=== PATIENT | female | born 1955 | race Hispanic/Latino ===

== ENCOUNTER 2020-05-02 09:19 | Inpatient (IN) | payer SELFPAY ==
[~2020-05-02] VITALS: Ht 154.9 cm; Wt 66.8 kg
[2020-05-02 09:43] LABS: APPEARANCE,URINE TURBID (CLEAR); BILIRUBIN,URINE NEGATIVE (NEGATIVE); COLOR,URINE YELLOW (YELLOW); GLUCOSE, URINE (UA) NEGATIVE (NEGATIVE); KETONES,URINE 5 mg/dL (NEGATIVE); LEUKOCYTE ESTERASE ,URINE NEGATIVE (NEGATIVE); NITRATE,URINE NEGATIVE (NEGATIVE); OCCULT BLOOD,URINE LARGE (NEGATIVE); PH,URINE 8.5 (5.0-8.0); PROTEIN,URINE TRACE mg/dL (NEGATIVE); UROBILINOGEN,URINE 0.2 mg/dL (0.2-1.0)
[2020-05-02 09:45] LABS: BASOPHILS % (AUTO) 0.5 % (0.0-5.0); EOSINOPHILS % (AUTO) 3.7 % (0.0-8.0); HEMATOCRIT 36.8 % (36-48); MEAN CORPUSCULAR HEMOGLOBIN 29.1 pg (27.0-33.0); MEAN CORPUSCULAR HGB CONC 34.5 g/dL (32.0-36.0); MEAN CORPUSCULAR VOLUME 84.2 fL (79-99); NEUTROPHILS % (AUTO) 44.6 % (40.0-77.0); PLATELET COUNT (AUTO) 266 K/uL (130-400); RED BLOOD CELL COUNT(AUTO) 4.37 MIL/uL (4.00-5.50); RED CELL DISTRIBUTION WIDTH 13.2 % (11.0-15.5); WHITE BLOOD COUNT (AUTO) 6.1 K/uL (4.8-10.8)
[2020-05-02] MEDS ORDERED: ONDANSETRON HCL 4 MG/2 ML VIAL ONE (09:46)
[2020-05-02] MEDS ORDERED: KETOROLAC TROMETHAMINE 30MG/ML ONE (09:46)
[2020-05-02] MEDS ORDERED: MORPHINE SULFATE 2 MG/ML 1ML SYG ONE (09:47)
[2020-05-02 09:53] LABS: AMORPHOUS SEDIMENT,UR Few /LPF (None Seen); BACTERIA,URINE Moderate /HPF (None Seen); RBC,URINE 26-50 /HPF (0-1); WBC,URINE 0-1 /HPF (0-1)
[2020-05-02 09:54] LABS: CREATININE 0.8 mg/dL (0.5-1.5); POTASSIUM 3.9 mmol/L (3.5-5.1)
[2020-05-02 09:59] LABS: ALBUMIN 3.9 g/dL (3.5-5.0); BILIRUBIN,TOTAL 0.5 mg/dL (0.2-1.0); TOTAL PROTEIN, SERUM 7.3 g/dL (6.0-8.3)
[2020-05-02] MEDS ORDERED: HYDROMORPHONE 1 MG/1 ML AMP ONE (10:55)
[2020-05-02] MEDS ORDERED: CEFTRIAXONE SODIUM 1 GM ONE (11:08)
[2020-05-02] MEDS ORDERED: SODIUM CHLORIDE 0.9% 100 ML IV ONE (11:09)
[2020-05-02] MEDS: TAMSULOSIN HCL 0.4 MG CAP.ER.24H PO SCH (12:45)
[2020-05-02] MEDS ORDERED: HYDRALAZINE HCL 20 MG/ML VIAL IV PRN (12:45)
[2020-05-02 13:09] LABS: HEMOGLOBIN A1C 7.7 % (4.0-6.0)
[2020-05-02] MEDS ORDERED: TAMSULOSIN HCL 0.4 MG CAP.ER.24H ONE (14:56)
[2020-05-02] MEDS ORDERED: MORPHINE SULFATE 4 MG/1ML SYG ONE (16:29)
[2020-05-02] MEDS: INSULIN HUMULIN R 100 UNIT/ML 3ML SQ SCH ×2 (16:30→20:28)
[2020-05-02] MEDS ORDERED: INSULIN HUMULIN R 100 UNIT/ML 3ML ONE (16:53)
[2020-05-02 17:17] VITALS: BP 129/67
[2020-05-02] MEDS ORDERED: METF-444 PO (18:07)
[2020-05-02 19:43] VITALS: BP 123/62
[2020-05-02] MEDS: MORPHINE SULFATE 4 MG/1ML SYG IV PRN (20:23)
[2020-05-02] MEDS: FAMOTIDINE/PF 20 MG/2 ML VIAL IV SCH (20:23)
[2020-05-02] MEDS: HYDROMORPHONE HCL 2 MG/ML VIAL IVP PRN (23:01)
[2020-05-02 23:56] VITALS: BP 131/65
[2020-05-03] MEDS: HYDROMORPHONE HCL 2 MG/ML VIAL IVP PRN ×5 (01:01→23:58)
[2020-05-03 03:55] VITALS: BP 105/54
[2020-05-03] MEDS: MORPHINE SULFATE 4 MG/1ML SYG IV PRN ×3 (06:24→20:17)
[2020-05-03] MEDS: INSULIN HUMULIN R 100 UNIT/ML 3ML SQ SCH ×4 (07:30→19:59)
[2020-05-03 08:17] VITALS: BP 141/74
[2020-05-03] MEDS: FAMOTIDINE/PF 20 MG/2 ML VIAL IV SCH ×2 (08:50→20:17)
[2020-05-03] MEDS: ENOXAPARIN SODIUM 40 MG/0.4 ML SYRINGE SQ SCH (08:50)
[2020-05-03] MEDS ORDERED: HYDROCODONE/ACETAMINOPHEN 5/325 MG TAB PO PRN (11:30)
[2020-05-03 11:39] VITALS: BP 129/60
[2020-05-03] MEDS: ONDANSETRON HCL 4 MG/2 ML VIAL IVP PRN ×3 (11:47→20:16)
[2020-05-03] MEDS: TAMSULOSIN HCL 0.4 MG CAP.ER.24H PO SCH (13:00)
[2020-05-03 16:29] VITALS: BP 123/69
--- NOTE | 2020-05-03 17:58 | NUR ---
i had drawn up morphine and zofran for pt's c/o pain not releived by the norco i had given her earlier; she needed to sign consent for surgery tomorrow so i first had her sign the consent before giving her the narcotic; then when i went to give her the morphine she stated can you give it to me in a couple of hours from now instead my pain has gone away; i told her i would hold it till 1829 which is the end of my shift and if she doesnt want it by then i will waste it; she stated understanding.
[2020-05-03 19:00] VITALS: BP 112/60
[2020-05-04] VITALS (23 sets, daily range): BP systolic 93–158; BP diastolic 43–84
[2020-05-04] MEDS: MORPHINE SULFATE 4 MG/1ML SYG IV PRN ×2 (00:56→04:06)
[2020-05-04] MEDS: HYDROMORPHONE HCL 2 MG/ML VIAL IVP PRN ×5 (01:37→05:29)
[2020-05-04] MEDS: INSULIN HUMULIN R 100 UNIT/ML 3ML SQ SCH ×3 (05:40→17:37)
[2020-05-04] MEDS: ONDANSETRON HCL 4 MG/2 ML VIAL IVP PRN (05:43)
[2020-05-04] MEDS: ENOXAPARIN SODIUM 40 MG/0.4 ML SYRINGE SQ SCH (09:00)
[2020-05-04 09:05] LABS: MEAN CORPUSCULAR HEMOGLOBIN 29.3 pg (27.0-33.0); MEAN CORPUSCULAR HGB CONC 34.1 g/dL (32.0-36.0); MEAN CORPUSCULAR VOLUME 85.9 fL (79-99); RED BLOOD CELL COUNT(AUTO) 3.96 MIL/uL (4.00-5.50); RED CELL DISTRIBUTION WIDTH 12.8 % (11.0-15.5); WHITE BLOOD COUNT (AUTO) 6.9 K/uL (4.8-10.8)
[2020-05-04 09:22] LABS: ALBUMIN 3.4 g/dL (3.5-5.0); BILIRUBIN,TOTAL 0.5 mg/dL (0.2-1.0); CREATININE 1.2 mg/dL (0.5-1.5); POTASSIUM 4.1 mmol/L (3.5-5.1); TOTAL PROTEIN, SERUM 6.8 g/dL (6.0-8.3)
[2020-05-04] MEDS: FAMOTIDINE/PF 20 MG/2 ML VIAL IV SCH (10:22)
[2020-05-04] MEDS ORDERED: IOHEXOL-350 50ML VIAL IV ONE (11:11)
[2020-05-04] MEDS ORDERED: DEXAMETHASONE SOD PHOSPHATE 10MG/ML 1ML VIAL ONE (11:33)
[2020-05-04] MEDS ORDERED: LIDOCAINE PF 2% 5ML ABBOJECT ONE (11:33)
[2020-05-04] MEDS ORDERED: MIDAZOLAM HCL 1 MG/ML 2ML VIAL ONE ×2 (11:33→12:04)
[2020-05-04] MEDS ORDERED: SUCCINYLCHOLINE 200MG/10ML SYR ONE ×2 (11:33→11:35)
[2020-05-04] MEDS ORDERED: ONDANSETRON HCL 4 MG/2 ML VIAL ONE (11:34)
[2020-05-04] MEDS ORDERED: NEOSTIGMINE 5MG/5ML SYR IV ONE (11:34)
[2020-05-04] MEDS ORDERED: FENTANYL CITRATE PF 50 MCG/1 ML 2ML VIAL ONE (11:34)
[2020-05-04] MEDS ORDERED: ROCURONIUM 10MG/1ML SYR 10 MG/ML ML ONE (11:34)
[2020-05-04] MEDS ORDERED: PROPOFOL 10 MG/ML 20ML VIAL IV ONE (11:34)
[2020-05-04] MEDS ORDERED: GLYCOPYRROLATE 1 MG/5 ML SYRINGE ONE (11:34)
[2020-05-04] MEDS ORDERED: CEFTRIAXONE SODIUM 1 GM ONE (11:41)
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
[2020-05-04] MEDS ORDERED: CEPHALEXIN 500 MG CAPSULE PO SCH (15:00)
[2020-05-04] MEDS ORDERED: KETOROLAC TROMETHAMINE 15MG/ML IV PRN (15:00)
[2020-05-04] MEDS ORDERED: KETOROLAC TROMETHAMINE 15MG/ML ONE (15:02)
[2020-05-04] MEDS: TAMSULOSIN HCL 0.4 MG CAP.ER.24H PO SCH (15:10)
--- NOTE | 2020-05-04 16:16 | NUR ---
in regards to dr weiss order that pt is ok to be d/c home later today i have asked pt if she would like to go home today and she stated yes; i have called radha chase manpower development specialist manager w/ hospitalist and let her know about d/c order; she stated she would reveiw the chart and place d/c order if appropriate in about an hour.
--- NOTE | 2020-05-04 18:30 | NUR ---
d/c instructions given to patient on after care for lithotripsy and uterine stent placement; pt stated understanding of all instructions, perscription given for abx and pain, pt understands not to pull on string taped to top of pubic area that it is attached to her stent; iv access removed. pt's here to pick her up
== END 2020-05-04 18:41 | disposition home or self-care (01) | DRG 661 ==
LOC: EDH 09:19 → EDHIP 09:20 → OBSVTOIN 09:20 → 3AH 17:15
PROVIDERS: ADMIT Hospitalist; ATTEND Hospitalist
PROC: 0T768DZ Dilation of Right Ureter with Intraluminal Device, Via Natural or Artificial Opening Endoscopic (ICD-10-PCS; principal; 2020-05-04 11:53)
PROC: 0TC68ZZ Extirpation of Matter from Right Ureter, Via Natural or Artificial Opening Endoscopic (ICD-10-PCS; 2020-05-04 11:53)
PROC: BT161ZZ Fluoroscopy of Right Ureter using Low Osmolar Contrast (ICD-10-PCS; 2020-05-04 11:53)
DX: N13.2 Hydronephrosis with renal and ureteral calculous obstruction (principal); F32.9 Major depressive disorder, single episode, unspecified; E11.9 Type 2 diabetes mellitus without complications; F41.9 Anxiety disorder, unspecified; I10 Essential (primary) hypertension; K57.90 Diverticulosis of intestine, part unspecified, without perforation or abscess without bleeding; K59.00 Constipation, unspecified; Z90.710 Acquired absence of both cervix and uterus; Z79.899 Other long term (current) drug therapy
CPT/HCPCS: 36415; 74018; 74176; 80053; 81001; 82948; 83036; 85025; 85027; 87088; C1758; C1769; C1894; C2617; G0378; J0330; J0696; J1100; J1170; J1650; J1815; J1885; J2001; J2250; J2270; J2405; J2704; J2710; J3010; J3490; Q9967

== ENCOUNTER 2020-05-18 05:52 | Inpatient (IN) | payer SELFPAY ==
[~2020-05-18] VITALS: Ht 154.9 cm; Wt 66.5 kg
[~2020-05-18 05:52] MED LIST: METF-444 PO
[2020-05-18 07:10] LABS: BASOPHILS % (AUTO) 0.5 % (0.0-5.0); EOSINOPHILS % (AUTO) 4.5 % (0.0-8.0); LYMPHOCYTES % (AUTO) 40.1 % (21.0-51.0); MEAN CORPUSCULAR HEMOGLOBIN 28.5 pg (27.0-33.0); MEAN CORPUSCULAR HGB CONC 33.3 g/dL (32.0-36.0); MEAN CORPUSCULAR VOLUME 85.5 fL (79-99); MONOCYTES % (AUTO) 6.5 % (3.0-13.0); NEUTROPHILS % (AUTO) 48.1 % (40.0-77.0); PLATELET COUNT (AUTO) 298 K/uL (130-400); RED BLOOD CELL COUNT(AUTO) 4.56 MIL/uL (4.00-5.50); RED CELL DISTRIBUTION WIDTH 12.9 % (11.0-15.5); WHITE BLOOD COUNT (AUTO) 6.5 K/uL (4.8-10.8)
[2020-05-18 07:23] LABS: INR 0.97 (0.85-1.15); PARTIAL THROMBOPLASTIN TIME 26.6 SEC (26.3-35.5); PROTHROMBIN TIME 10.5 SEC (9.6-11.6)
[2020-05-18 07:29] LABS: ALBUMIN 3.8 g/dL (3.5-5.0); BILIRUBIN,TOTAL 0.7 mg/dL (0.2-1.0); CREATININE 0.7 mg/dL (0.5-1.5); POTASSIUM 4.5 mmol/L (3.5-5.1); TOTAL PROTEIN, SERUM 7.8 g/dL (6.0-8.3)
[2020-05-18] MEDS ORDERED: METOCLOPRAMIDE 10 MG/2 ML VIAL ONE (07:30)
[2020-05-18 07:31] LABS: APPEARANCE,URINE CLOUDY (CLEAR); BILIRUBIN,URINE NEGATIVE (NEGATIVE); COLOR,URINE YELLOW (YELLOW); GLUCOSE, URINE (UA) NEGATIVE (NEGATIVE); KETONES,URINE NEGATIVE (NEGATIVE); LEUKOCYTE ESTERASE ,URINE LARGE (NEGATIVE); NITRATE,URINE POSITIVE (NEGATIVE); OCCULT BLOOD,URINE MODERATE (NEGATIVE); PROTEIN,URINE 30 mg/dL (NEGATIVE); UROBILINOGEN,URINE 0.2 mg/dL (0.2-1.0)
[2020-05-18] MEDS ORDERED: KETOROLAC TROMETHAMINE 30MG/ML ONE (07:31)
[2020-05-18] MEDS ORDERED: SODIUM CHLORIDE 0.9% 50 ML IV ONE ×2 (07:31→08:54)
[2020-05-18] MEDS ORDERED: ONDANSETRON HCL 4 MG/2 ML VIAL ONE (07:31)
[2020-05-18 07:36] LABS: BACTERIA,URINE Moderate /HPF (None Seen); MUCUS,URINE Few LPF (None Seen); SQUAMOUS EPITHELIAL CELL,UR Few /HPF (0-2); WBC,URINE >100 /HPF (0-1)
[2020-05-18] MEDS ORDERED: ONDANSETRON HCL 4 MG/2 ML VIAL IVP PRN (08:45)
[2020-05-18] MEDS: SODIUM CHLORIDE 0.9% 1000ML 1,000 ML IV SCH ×2 (08:45→18:45)
[2020-05-18] MEDS ORDERED: ACETAMINOPHEN 325 MG TAB PO PRN (08:45)
[2020-05-18] MEDS: CEFTRIAXONE SODIUM 1 GM IVP SCH (08:45)
[2020-05-18] MEDS ORDERED: MORPHINE SULFATE 2 MG/ML 1ML SYG IVP PRN (08:45)
[2020-05-18] MEDS ORDERED: CEFTRIAXONE SODIUM 1 GM ONE (08:53)
[2020-05-18] MEDS: FAMOTIDINE/PF 20 MG/2 ML VIAL IV SCH ×2 (09:00→21:00)
[2020-05-18] MEDS ORDERED: FAMOTIDINE/PF 20 MG/2 ML VIAL IV ONE (16:24)
[2020-05-18] MEDS ORDERED: SODIUM CHLORIDE 0.9% 1000ML 1,000 ML IV ONE (16:25)
[2020-05-18] MEDS ORDERED: MORPHINE SULFATE 2 MG/ML 1ML SYG ONE (23:27)
[2020-05-19 00:43] VITALS: BP 136/71
--- NOTE | 2020-05-19 00:43 | NUR ---
ER Admitted from ER,aao x 3.Denies pain or discomfort.Plan of care explained to pt.Plan for surgery on 05/20/[address] Steele,lumber sales supervisor Danay Goncalves Rn aware.
[2020-05-19 03:58] LABS: BASOPHILS % (AUTO) 0.6 % (0.0-5.0); EOSINOPHILS % (AUTO) 4.5 % (0.0-8.0); HEMATOCRIT 33.7 % (36-48); LYMPHOCYTES % (AUTO) 36.8 % (21.0-51.0); MEAN CORPUSCULAR HEMOGLOBIN 28.8 pg (27.0-33.0); MEAN CORPUSCULAR HGB CONC 33.5 g/dL (32.0-36.0); MEAN CORPUSCULAR VOLUME 85.8 fL (79-99); MONOCYTES % (AUTO) 7.5 % (3.0-13.0); NEUTROPHILS % (AUTO) 50.4 % (40.0-77.0); PLATELET COUNT (AUTO) 236 K/uL (130-400); RED BLOOD CELL COUNT(AUTO) 3.93 MIL/uL (4.00-5.50); RED CELL DISTRIBUTION WIDTH 12.7 % (11.0-15.5); WHITE BLOOD COUNT (AUTO) 5.3 K/uL (4.8-10.8)
[2020-05-19 04:02] VITALS: BP 129/49
[2020-05-19 04:09] LABS: CREATININE 0.6 mg/dL (0.5-1.5); POTASSIUM 3.8 mmol/L (3.5-5.1)
[2020-05-19] MEDS: SODIUM CHLORIDE 0.9% 1000ML 1,000 ML IV SCH ×2 (05:05→14:45)
--- NOTE | 2020-05-19 05:33 | NUR ---
ASLEEP Pt sleeping,Consent for surgery tomorrow not yet obtained.
[2020-05-19] MEDS: FAMOTIDINE/PF 20 MG/2 ML VIAL IV SCH ×2 (08:17→21:13)
[2020-05-19] MEDS: CEFTRIAXONE SODIUM 1 GM IVP SCH (08:17)
[2020-05-19 14:48] VITALS: BP 123/66
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
[2020-05-19 18:57] VITALS: BP 136/74
[2020-05-19 19:57] VITALS: BP 139/53
[2020-05-20] VITALS (27 sets, daily range): BP systolic 121–163; BP diastolic 58–82
[2020-05-20] MEDS: SODIUM CHLORIDE 0.9% 1000ML 1,000 ML IV SCH ×3 (03:31→22:22)
[2020-05-20 03:48] LABS: BASOPHILS % (AUTO) 0.7 % (0.0-5.0); EOSINOPHILS % (AUTO) 3.7 % (0.0-8.0); HEMATOCRIT 35.8 % (36-48); LYMPHOCYTES % (AUTO) 37.6 % (21.0-51.0); MEAN CORPUSCULAR HEMOGLOBIN 29.1 pg (27.0-33.0); MEAN CORPUSCULAR HGB CONC 34.4 g/dL (32.0-36.0); MEAN CORPUSCULAR VOLUME 84.6 fL (79-99); MONOCYTES % (AUTO) 6.9 % (3.0-13.0); PLATELET COUNT (AUTO) 280 K/uL (130-400); RED BLOOD CELL COUNT(AUTO) 4.23 MIL/uL (4.00-5.50); RED CELL DISTRIBUTION WIDTH 12.6 % (11.0-15.5); WHITE BLOOD COUNT (AUTO) 6.8 K/uL (4.8-10.8)
[2020-05-20 04:06] LABS: CREATININE 0.9 mg/dL (0.5-1.5); POTASSIUM 3.7 mmol/L (3.5-5.1)
[2020-05-20] MEDS: CEFTRIAXONE SODIUM 1 GM IVP SCH (08:29)
[2020-05-20] MEDS: FAMOTIDINE/PF 20 MG/2 ML VIAL IV SCH ×2 (08:29→22:22)
[2020-05-20] MEDS: KETOROLAC TROMETHAMINE 15MG/ML IV PRN ×2 (08:36→22:24)
[2020-05-20] MEDS: ZOSYN 3.375GM+NS 50ML 50 ML IV SCH ×3 (14:25→22:22)
[2020-05-20] MEDS ORDERED: IOHEXOL-350 50ML VIAL IV ONE (16:02)
[2020-05-20] MEDS ORDERED: MIDAZOLAM HCL 1 MG/ML 2ML VIAL ONE (16:10)
[2020-05-20] MEDS ORDERED: LIDOCAINE HCL MPF 1% 5ML VIAL ONE (16:10)
[2020-05-20] MEDS ORDERED: ONDANSETRON HCL 4 MG/2 ML VIAL ONE (16:10)
[2020-05-20] MEDS ORDERED: PROPOFOL 10 MG/ML 20ML VIAL IV ONE (16:10)
[2020-05-20] MEDS ORDERED: ROCURONIUM 10MG/1ML SYR 10 MG/ML ML ONE (16:10)
[2020-05-20] MEDS ORDERED: FENTANYL CITRATE PF 50 MCG/1 ML 2ML VIAL ONE (16:11)
[2020-05-20] MEDS ORDERED: SUCCINYLCHOLINE 200MG/10ML SYR ONE (16:32)
[2020-05-20] MEDS ORDERED: GLYCOPYRROLATE 1 MG/5 ML SYRINGE ONE (17:09)
[2020-05-20] MEDS ORDERED: EPHEDRINE SULFATE 50 MG/ML AMPULE ONE (17:23)
--- NOTE | 2020-05-20 19:00 | NUR ---
S/P URETEROSCOPY WITH STENT PLACEMENT 1811 REPORT RECEIVED PATIENT S/P RIGHT URETEROSCOPY WITH STENT PLACEMENT BY DR REN, VS B/P 159/70, P 63, T 98 O2 SATS ON ROOM AIR, FOLLOW-UP WITH DR REN ON SUNDAY FOR STENT REMOVAL, PATIENT MAY BE DISCHARGE LATER TONIGHT OR IN THE MORNING
[2020-05-21 03:52] VITALS: BP 132/68
[2020-05-21] MEDS: ZOSYN 3.375GM+NS 50ML 50 ML IV SCH (05:52)
[2020-05-21 08:00] VITALS: BP 125/63
[2020-05-21] MEDS ORDERED: LEVO750T46 PO (09:30)
[2020-05-21] MEDS ORDERED: LEVO500T89 PO (11:36)
== END 2020-05-21 12:10 | disposition home or self-care (01) | DRG 661 ==
LOC: EDH 05:52 → EDHIP 05:53 → OBSVTOIN 05:53 → 3DH 05-19 00:11
PROVIDERS: ADMIT Hospitalist; ATTEND Hospitalist
PROC: 0TC68ZZ Extirpation of Matter from Right Ureter, Via Natural or Artificial Opening Endoscopic (ICD-10-PCS; principal; 2020-05-20 16:38)
PROC: 0T768DZ Dilation of Right Ureter with Intraluminal Device, Via Natural or Artificial Opening Endoscopic (ICD-10-PCS; 2020-05-20 16:38)
DX: N13.6 Pyonephrosis (principal); B96.1 Klebsiella pneumoniae [K. pneumoniae] as the cause of diseases classified elsewhere; E11.9 Type 2 diabetes mellitus without complications; Z87.442 Personal history of urinary calculi; I10 Essential (primary) hypertension; Z90.710 Acquired absence of both cervix and uterus; F32.9 Major depressive disorder, single episode, unspecified; F41.9 Anxiety disorder, unspecified; Z20.828 Contact with and (suspected) exposure to other viral communicable diseases
CPT/HCPCS: 36415; 74018; 80048; 80053; 81001; 82360; 82550; 82948; 85025; 85610; 85730; 87040; 87077; 87088; 87186; 87426; G0378; J0330; J0696; J1885; J2250; J2405; J2543; J2704; J2765; J3010; J3490; J7030; Q9967; U0003

== ENCOUNTER 2022-10-12 11:03 | Emergency (ER) | payer MEDICAID, OTHER ==
[~2022-10-12] VITALS: Ht 167.6 cm; Wt 61.2 kg
[~2022-10-12 11:03] MED LIST changes: +LEVO-70 PO
[2022-10-12 12:06] LABS: BASOPHILS % (AUTO) 0.5 % (0.0-5.0); EOSINOPHILS % (AUTO) 1.6 % (0.0-8.0); LYMPHOCYTES % (AUTO) 32.1 % (21.0-51.0); MEAN CORPUSCULAR HEMOGLOBIN 29.3 pg (27.0-33.0); MEAN CORPUSCULAR HGB CONC 33.8 g/dL (32.0-36.0); MEAN CORPUSCULAR VOLUME 86.7 fL (79-99); MONOCYTES % (AUTO) 5.8 % (3.0-13.0); NEUTROPHILS % (AUTO) 59.7 % (40.0-77.0); PLATELET COUNT (AUTO) 241 K/uL (130-400); RED CELL DISTRIBUTION WIDTH 13.2 % (11.0-15.5); WHITE BLOOD COUNT (AUTO) 6.4 K/uL (4.8-10.8)
[2022-10-12 12:19] LABS: CREATININE 0.7 mg/dL (0.5-1.5); POTASSIUM 3.9 mmol/L (3.5-5.1)
[2022-10-12 12:24] LABS: ALBUMIN 3.9 g/dL (3.5-5.0); TOTAL PROTEIN, SERUM 7.2 g/dL (6.0-8.3)
[2022-10-12] MEDS ORDERED: ACETAMINOPHEN 500 MG TABLET PO ONE (14:00)
[2022-10-12] MEDS ORDERED: NAPROXEN 500 MG TABLET PO ONE (16:30)
[2022-10-12] MEDS ORDERED: NAPROXEN 250 MG TAB ONE (16:38)
[2022-10-12 16:46] VITALS: BP 139/87
== END 2022-10-12 17:00 | disposition home or self-care (01) ==
LOC: EDH 11:03
DX: M79.602 Pain in left arm (principal); M79.605 Pain in left leg; R51.9 Headache, unspecified; E11.9 Type 2 diabetes mellitus without complications; Z90.710 Acquired absence of both cervix and uterus; Z79.2 Long term (current) use of antibiotics; Z79.899 Other long term (current) drug therapy
CPT/HCPCS: 36415; 70450; 71045; 72125; 80053; 84484; 85025; 93005

== ENCOUNTER 2022-12-25 09:42 | Emergency (ER) | payer MEDICARE, OTHER ==
[~2022-12-25] VITALS: Ht 162.6 cm; Wt 65.8 kg
[2022-12-25 09:49] VITALS: BP 120/79
== END 2022-12-25 10:56 | disposition home or self-care (01) ==
LOC: EDH 09:42
DX: S00.211A Abrasion of right eyelid and periocular area, initial encounter (principal); E11.9 Type 2 diabetes mellitus without complications; Z79.84 Long term (current) use of oral hypoglycemic drugs; Z79.899 Other long term (current) drug therapy; Z98.890 Other specified postprocedural states; X58.XXXA Exposure to other specified factors, initial encounter; Y93.89 Activity, other specified; Y92.89 Other specified places as the place of occurrence of the external cause; Y99.8 Other external cause status

== ENCOUNTER 2024-04-08 13:32 | Emergency (ER) | payer OTHER, MEDICARE ==
[~2024-04-08] VITALS: Ht 162.6 cm; Wt 71.7 kg
[2024-04-08 13:55] LABS: BASOPHILS # (AUTO) 0.04 K/uL (0.00-0.20); BASOPHILS % (AUTO) 0.7 % (0.0-5.0); EOSINOPHILS # (AUTO) 0.12 K/uL (0.00-0.70); EOSINOPHILS % (AUTO) 2.1 % (0.0-8.0); HEMATOCRIT 39.4 % (36-48); IMMATURE GRANULOCYTE ABSOLUTE 0.01 K/uL (0-1); LYMPHOCYTES # (AUTO) 2.4 K/uL (1.0-4.8); LYMPHOCYTES % (AUTO) 41.8 % (21.0-51.0); MEAN CORPUSCULAR HEMOGLOBIN 29.5 pg (27.0-33.0); MEAN CORPUSCULAR VOLUME 84.2 fL (79-99); MONOCYTES # (AUTO) 0.3 K/uL (0.1-1.0); NEUTROPHILS # (AUTO) 2.9 K/uL (1.8-7.7); NEUTROPHILS % (AUTO) 50.2 % (40.0-77.0); PLATELET COUNT (AUTO) 247 K/uL (130-400); RED BLOOD CELL COUNT(AUTO) 4.68 MIL/uL (4.00-5.50); RED CELL DISTRIBUTION WIDTH 13.1 % (11.0-15.5); WHITE BLOOD COUNT (AUTO) 5.8 K/uL (4.8-10.8)
[2024-04-08] MEDS ORDERED: MORPHINE 4 MG SYG IVP ONE (14:00)
[2024-04-08 14:03] LABS: CREATININE 0.6 mg/dL (0.5-1.0); POTASSIUM 3.8 mmol/L (3.5-5.1)
[2024-04-08 14:05] LABS: INR 1.01 (0.85-1.15); PROTHROMBIN TIME 10.9 SEC (9.6-11.6)
[2024-04-08 14:07] LABS: PARTIAL THROMBOPLASTIN TIME 25.5 SEC (26.3-35.5)
[2024-04-08 14:08] LABS: ALBUMIN 4.1 g/dL (3.5-5.0); BILIRUBIN,TOTAL 0.7 mg/dL (0.2-1.0); MAGNESIUM 1.8 mg/dL (1.80-2.40); TOTAL PROTEIN, SERUM 7.6 g/dL (6.0-8.3)
[2024-04-08] MEDS: ASPIRIN 325MG TAB PO ONE (14:09)
[2024-04-08] MEDS: ALPRAZolam 0.5 MG TABLET PO ONE (14:09)
[2024-04-08] MEDS: ONDANSETRON 4MG INJ IVP ONE (14:09)
[2024-04-08] MEDS: NITROGLYCERIN 0.4 MG SL TAB SL PRN (14:09)
[2024-04-08 14:33] LABS: APPEARANCE,URINE CLEAR (CLEAR); BILIRUBIN,URINE NEGATIVE (NEGATIVE); COLOR,URINE COLORLESS (YELLOW); GLUCOSE, URINE (UA) NEGATIVE (NEGATIVE); KETONES,URINE 10 mg/dL (NEGATIVE); LEUKOCYTE ESTERASE ,URINE NEGATIVE Leu/uL (NEGATIVE); NITRATE,URINE NEGATIVE (NEGATIVE); OCCULT BLOOD,URINE NEGATIVE (NEGATIVE); PROTEIN,URINE NEGATIVE (NEGATIVE); UROBILINOGEN,URINE 0.2 mg/dL (0.2-1.0)
[2024-04-08 14:41] LABS: ADD UA MICROSCOPIC YES
[2024-04-08 14:47] LABS: BACTERIA,URINE RARE /HPF (None Seen); MUCUS,URINE RARE LPF (None Seen); RBC,URINE 0-1 /HPF (0-1); SQUAMOUS EPITHELIAL CELL,UR RARE /HPF (0-2); WBC,URINE 0-1 /HPF (0-1)
[2024-04-08 15:50] VITALS: BP 113/58; PULSE 62; RESP 14; O2SAT 98
[2024-04-08] MEDS ORDERED: OMEP40CA21 PO (15:51)
== END 2024-04-08 15:55 | disposition home or self-care (01) ==
LOC: EDH 13:32
DX: R07.89 Other chest pain (principal); K22.4 Dyskinesia of esophagus; K44.9 Diaphragmatic hernia without obstruction or gangrene; F41.9 Anxiety disorder, unspecified; F03.94 Unspecified dementia, unspecified severity, with anxiety; E11.9 Type 2 diabetes mellitus without complications; I10 Essential (primary) hypertension; Z79.899 Other long term (current) drug therapy
CPT/HCPCS: 99285; 71045; 83735; 84484 ×2; 80053; 85025; 85610; 85730; 81001; 36415; 93005; J2405

== ENCOUNTER 2024-09-01 16:21 | Emergency (ER) | payer OTHER, MEDICARE ==
[~2024-09-01] VITALS: Ht 157.5 cm; Wt 68.0 kg
[~2024-09-01 16:21] MED LIST changes: +OMEP40CA21 PO
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
[2024-09-01 18:17] LABS: BASOPHILS # (AUTO) 0.06 K/uL (0.00-0.20); BASOPHILS % (AUTO) 0.8 % (0.0-5.0); EOSINOPHILS # (AUTO) 0.12 K/uL (0.00-0.70); EOSINOPHILS % (AUTO) 1.6 % (0.0-8.0); HEMATOCRIT 39.9 % (36-48); IMMATURE GRANULOCYTE ABSOLUTE 0.02 K/uL (0-1); LYMPHOCYTES # (AUTO) 2.4 K/uL (1.0-4.8); LYMPHOCYTES % (AUTO) 32.1 % (21.0-51.0); MEAN CORPUSCULAR HEMOGLOBIN 30.2 pg (27.0-33.0); MEAN CORPUSCULAR HGB CONC 35.1 g/dL (32.0-36.0); MONOCYTES # (AUTO) 0.5 K/uL (0.1-1.0); MONOCYTES % (AUTO) 6.2 % (3.0-13.0); NEUTROPHILS # (AUTO) 4.4 K/uL (1.8-7.7); PLATELET COUNT (AUTO) 254 K/uL (130-400); RED BLOOD CELL COUNT(AUTO) 4.64 MIL/uL (4.00-5.50); RED CELL DISTRIBUTION WIDTH 12.7 % (11.0-15.5); WHITE BLOOD COUNT (AUTO) 7.4 K/uL (4.8-10.8)
[2024-09-01 18:24] LABS: CREATININE 0.7 mg/dL (0.5-1.0); POTASSIUM 3.9 mmol/L (3.5-5.1)
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
--- NOTE | 2024-09-01 19:24 | HMCIMG ---
CHEST 1VW HISTORY: Chest pain COMPARISON: 04/08/2024 FINDINGS: A frontal projection of the chest was obtained. No acute pulmonary infiltrates is seen. The heart is normal in size. Prominent interstitial markings are seen. No evidence of aortic calcification is seen. IMPRESSION: 1. No acute pulmonary infiltrate is seen.
[2024-09-01 20:02] VITALS: BP 147/66; PULSE 61; RESP 18; TEMP 98.6; O2SAT 98
[2024-09-01 20:06] LABS: ADD UA MICROSCOPIC YES; APPEARANCE,URINE CLEAR (CLEAR); BILIRUBIN,URINE NEGATIVE (NEGATIVE); COLOR,URINE LIGHT-YELLOW (YELLOW); GLUCOSE, URINE (UA) >=1000 mg/dL (NEGATIVE); KETONES,URINE 5 mg/dL (NEGATIVE); LEUKOCYTE ESTERASE ,URINE NEGATIVE Leu/uL (NEGATIVE); NITRATE,URINE NEGATIVE (NEGATIVE); OCCULT BLOOD,URINE NEGATIVE (NEGATIVE); PROTEIN,URINE 10 mg/dL (NEGATIVE); UROBILINOGEN,URINE 0.2 mg/dL (0.2-1.0)
[2024-09-01 20:21] LABS: BACTERIA,URINE RARE /HPF (None Seen); MUCUS,URINE FEW LPF (None Seen); SQUAMOUS EPITHELIAL CELL,UR RARE /HPF (0-2)
--- NOTE | 2024-09-01 20:50 | EKG ---
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
== END 2024-09-01 20:46 | disposition home or self-care (01) ==
LOC: EDH 16:21
DX: F41.9 Anxiety disorder, unspecified (principal); M54.2 Cervicalgia; R07.89 Other chest pain; R51.9 Headache, unspecified; E11.9 Type 2 diabetes mellitus without complications; F03.94 Unspecified dementia, unspecified severity, with anxiety; Z79.899 Other long term (current) drug therapy; V89.2XXA Person injured in unspecified motor-vehicle accident, traffic, initial encounter; Y93.89 Activity, other specified; Y92.488 Other paved roadways as the place of occurrence of the external cause; Y99.8 Other external cause status
CPT/HCPCS: 36415; 70450; 71045; 72125; 80048; 81001; 85025; 93005; 99285